=== PATIENT | male | born 1965 | race Caucasian/White ===

== ENCOUNTER → 2024-03-28 12:50 | Outpatient (REF) | payer OTHER, SELFPAY | LOC: RCS 12:50 | PROVIDERS: ATTENDING PHYSICIAN Internal Medicine Cardiovascular Disease; FAMILY PHYSICIAN Internal Medicine; REFERRING PHYSICIAN Family Medicine | DX: I77.810 Thoracic aortic ectasia (principal) | CPT/HCPCS: 93306 ==

== ENCOUNTER 2024-10-12 21:13 | Emergency (ER) | payer OTHER, SELFPAY ==
[2024-10-12 21:16] VITALS: BP 143/87
[2024-10-12] MEDS: ZOFRAN 4 MG IV (21:25)
[2024-10-12] MEDS: MORPHINE SULFATE 4 MG IV (21:26)
[2024-10-12 21:29] LABS: Urine Albumin 2+ (Neg - Trace); Urine Bilirubin Negative (Negative); Urine Character Clear (Clear); Urine Color Yellow; Urine Glucose 2+ (Negative); Urine Ketone Negative (Negative); Urine Leukocyte Negative (Negative); Urine Nitrite Negative (Negative); Urine Occult Blood 4+ (Negative); Urine Specific Gravity 1.025 (<1.030); Urine Urobilinogen Negative (Neg - 1+)
[2024-10-12 21:30] LABS: % Basophils 0.6 % (0-2); % Eosinophils 5.7 % (0-6); % Immature Granulocytes 0.5 % (0-0.5); % Lymphocytes 36.1 % (20.5-51.1); % Neutrophils 51.1 % (42.2-75.2); Absolute Basophils 0.1 10^3/uL (0-0.2); Absolute Eosinophils 0.5 10^3/uL (0-0.7); Absolute Monocytes 0.5 10^3/uL (0.1-0.6); Absolute Neutrophils 4.3 10^3/uL (1.4-6.5); Hematocrit 39.6 % (39.0-52.0); Hemoglobin 13.9 g/dL (13.0-18.0); Mean Corp Hgb Conc. 35.1 g/dL (33.0-37.0); Mean Corpuscular Volume 91.2 fL (80.0-94.0); Mean Platelet Volume 9.4 fL (7.4-10.4); Nucleated Red Blood Cells % 0 % (-); Platelet Count 223 10^3/uL (130-400); Red Blood Cell Count 4.34 10^6/uL (4.70-6.10); Red Cell Dist. Width 13.2 % (11.5-14.5); White Blood Cell Count 8.3 10^3/uL (4.8-10.8)
[2024-10-12 21:46] LABS: ALT (SGPT) 62 U/L (0-50); AST (SGOT) 58 U/L (17-59); Albumin 4.2 g/dl (3.5-5.0); Alkaline Phosphatase 77 U/L (38-126); Blood Urea Nitrogen 22 mg/dl (9-20); Calcium 9.2 mg/dl (8.4-10.2); Carbon Dioxide 26 mmol/L (22-30); Chloride 109 mmol/L (98-107); Glucose 196 mg/dl (70-99); Potassium 4.4 mmol/L (3.5-5.1); Sodium 142 mmol/L (135-145); Total Bilirubin 0.8 mg/dl (0.2-1.3); Total Protein 6.4 g/dl (6.3-8.2); Urine Squamous Cell 0-2 /LPF (Few); eGFR > 60.00
[2024-10-12 21:47] LABS: Urine Bacteria Few (Negative); Urine Mucus Moderate; Urine Red Blood Cell 50-60 /HPF (0-2); Urine White Cell 0-2 /HPF (0-5)
--- NOTE | 2024-10-12 23:55 | ED.GENMED ---
History of Present Illness
General
Chief Complaint: Flank Pain
Source: patient
Exam Limitations: none
Time Seen by Provider: 10/12/24 23:19
Nursing documentation reviewed up to this point in time: agreed with
History of Present Illness
History of Present Illness:
Patient is a 5-year-old male complaining of right flank pain that started today. Patient has a history of kidney stones years ago. He denies any nausea vomiting fevers. He denies any testicular pain.
Past History
Past History
ED Past Medical History: HTN, Hypercholesterolemia and Other (WPW)
ED Past Surgical History: Cardiac (Ablation), Tonsilectomy and Other (Bariatric surgery)
Social History
Tobacco: Non-smoker
Alcohol: None
Drug: None
Personal:
Living: with family
Employment: Employed
Family History
Family History: Hypertension and CAD; Negative Early CAD
Review of Systems
Review of Systems
Allergies reviewed?: Yes
All Other Systems: ROS reviewed and negative except as documented in HPI and ROS
Constitutional: Reports no symptoms
Cardiac: Reports no symptoms
ABD/GI: Reports no symptoms
: Reports flank pain
Musculoskeletal: Reports no symptoms
Skin: Reports no symptoms
Neurological: Reports no symptoms
Psychiatric: Reports no symptoms
Phy Exam
General Physical Exam
General Presentation: no apparent distress
General age: appears stated age
General Skin: warm and dry
General Habitus: normal
General Mental: alert
General Hydration: appears well hydrated
Gastrointestinal Exam
Gastrointestinal Exam: normal bowel sounds, non tender and soft
Neurological Exam
Neurological Exam: alert and oriented x3
Musculoskeletal Exam
Musculoskeletal Exam: full ROM
Skin Exam
Skin Exam: normal color and warm/dry
Psychiatric Exam
Psychiatric Exam: normal mood/affect
Course
Orders/Labs/Results
Orders:
Orders
10/12/24 21:22
CBC/With Diff [Complete Blood Count/With Diff] Urgent
CMP [Comprehensive Metabolic Panel] Urgent
Urinalysis Reflex To Culture Urgent
Date Specimen was Collected: 10/12/24
Time Specimen was Collected: 21:16
Urine Microscopic Reflex Cult Urgent
Morphine Sulfate 4 mg .ROUTE .STK-MED ONE
Ondansetron Injectable [Zofran] 4 mg .ROUTE .STK-MED ONE
10/12/24 21:24
Ondansetron Injectable [Zofran] 4 mg IV NOW STA
10/12/24 21:25
Morphine Sulfate 4 mg IV NOW STA
10/12/24 21:29
CT Abd/pel Without Iv Or Oral Urgent
Comment:
Reason For Exam: right flank pain
10/12/24 23:59
0.9% Sodium Chloride 1000 ml [Nss] 1,000 ml IV BOLUS
HYDROmorphone [Dilaudid] 1 mg IV NOW STA
10/13/24 00:00
Tamsulosin [Flomax] 0.4 mg PO NOW STA
Abnormal Lab Results
10/12/24
21:22
RBC 4.34 L 10^6/uL
(4.70-6.10)
MCH 32.0 H pg
(27.0-31.0)
Chloride 109 H mmol/L
(98-107)
BUN 22 H mg/dl
(9-20)
Glucose 196 H mg/dl
(70-99)
ALT 62 H U/L
(0-50)
Ur Occult Blood Reflex 4+ A
(Negative)
Urine RBC 50-60 A /HPF
(0-2)
Urine Bacteria (Reflex) Few A
(Negative)
Urine Glucose 2+ A
(Negative)
Urine Albumin (Reflex) 2+ A
(Neg - Trace)
10/12/24 21:22
10/12/24 21:22
Vital Signs
Initial and Last Documented VS:
Initial Vital Signs
Temp Pulse Resp Pulse Ox
97.6 F 91 15 98
10/12/24 21:14 10/12/24 21:14 10/12/24 21:14 10/12/24 21:14
Last Documented Vital Signs
Temp Pulse Resp BP Pulse Ox
97.6 F 91 15 143/87 95
10/12/24 21:14 10/12/24 21:14 10/12/24 21:14 10/12/24 21:16 10/13/24 00:10
MDM/Problems Addressed
Differential Diagnosis Includes:
not limited to: renal colic
MDM/Problems Addressed:
Patient as documented is a 59-year-old male who present with right flank pain. Patient has a 3 mm distal right calculus with mild to moderate obstructive uropathy. Patient denies any fever chills he is in no acute distress afebrile normal white
count normal renal function. Patient was given narcotic along with Zofran and fluids NSAIDs avoided as he is a bariatric surgery patient. He feels well enough to go home he was also given Flomax here will DC with oxycodone Flomax and close
outpatient follow with urology
*Radiology
Radiology exam reviewed: radiology read reviewed (3 mm distal right calculus with mild to moderate obstructive uropathy distal right ureteral)
*Critical Care Note
Total Time (30-74mins, 75-104mins- exclusive of procedures): Not Applicable
ED Attending Note
-
Portions of this chart may have been created with voice recognition software.� Occasional wrong word or��sound alike� substitutions may have occurred due to the inherent limitations of voice recognition software.
Discharge Plan
Departure
Patient Disposition: Home (Routine Discharge)
Date of Disposition: 10/13/24
Time of Disposition: 00:47
Patient with high blood pressure during this ER visit?: Yes
Condition: Fair
Covid-19: Not Applicable
Discharge Problem:
Renal colic on right side
Instructions: Kidney Stones (DC), How to Strain Your Urine, BLOOD PRESSURE, Narcotic Pain Medication
Prescriptions:
New
oxycodone 5 mg tablet
5 mg PO Q6H PRN (Reason: Pain) Qty: 10 0RF
tamsulosin [Flomax] 0.4 mg capsule
0.4 mg PO DAILY Qty: 7 0RF
No Action
amlodipine 5 MG tablet
5 mg PO HS
pantoprazole 40 MG tablet,delayed release (DR/EC)
40 mg PO BID
lorazepam 0.5 mg Tablet
0.5 mg PO HS PRN (Reason: sleep)
Patient Comments:
03/25/2022: last filled 03/03/22, 90 tabs for 90 days from [facility]
escitalopram oxalate 10 mg Tablet
10 mg PO DAILY
rosuvastatin 40 mg tablet
40 mg PO DAILY
Tremfya 100 mg/mL syringe
100 mg SC Q6W
metoprolol tartrate 25 mg tablet
12.5 mg PO BID Qty: 60 0RF
Eliquis 5 mg tablet
5 mg PO BID Qty: 60 0RF
multivitamin Tablet
1 tab PO DAILY
doxycycline hyclate 100 mg Tablet
100 mg PO DAILY
cholecalciferol (vitamin D3) [Vitamin D3] 50 mcg (2,000 unit) Capsule
50 mcg PO DAILY
ferrous sulfate [iron] 325 mg (65 mg iron) Tablet
325 mg PO DAILY
Referrals:
Daryl Brand MD [Active] -
Mariajose Lisa MD [Family Provider] -
Activity Restrictions/Additional Instructions:
As discussed please increase water intake strain all urine. You may take Tylenol for discomfort however if needed a prescription for oxycodone was sent to your pharmacy take as directed. This is a narcotic and may cause constipation. Be sure to
take xoan-ryc-jzxummi laxative while taking this medication. No driving or drinking alcohol while taking this medication. In addition please take Flomax once a day daily for the next 7 days. Please follow-up with urology call to make an
appointment. Return if any worsening of symptoms.
Interventions
Interventions:
*Risk Screen - Suicide Last Done: 10/12/24 21:14
*General Assessment Last Done: 10/12/24 21:14
*Neglect/Abuse Screening Last Done: 10/12/24 21:14
*ED- Fall Risk Assessment Last Done: 10/13/24 00:11
*ED COVID-19 Vaccine History Last Done: 10/12/24 21:14
TS-Ufizpc-Ovbqdapfud Assessment Last Done: 10/13/24 00:05
ED-Male Genitourinary Assessment Last Done: 10/13/24 00:05
Discharge Date and Time
Print Language: AZERI
[2024-10-13] MEDS: DILAUDID 1 MG IV (00:09)
[2024-10-13] MEDS: NSS 1000 IV (00:09)
[2024-10-13] MEDS: FLOMAX 0.4 MG PO (00:51)
== END 2024-10-13 01:01 | disposition home or self-care (01) ==
LOC: EMR 21:13
PROVIDERS: Emergency Medicine; EMERGENCY PHYSICIAN Student in an Organized Health Care Education/Training Program; FAMILY PHYSICIAN Family Medicine
DX: R10.9 Unspecified abdominal pain (principal); I10 Essential (primary) hypertension; E78.00 Pure hypercholesterolemia, unspecified; I45.6 Pre-excitation syndrome; Z82.49 Family history of ischemic heart disease and other diseases of the circulatory system; Z87.442 Personal history of urinary calculi
CPT/HCPCS: 99284; 96374; 96375; 96360; 74176; 80053; 81003; 81015; 85025

== ENCOUNTER 2024-10-15 15:45 | Emergency (ER) | payer OTHER, SELFPAY ==
[2024-10-15 15:54] VITALS: BP 122/89
[2024-10-15 16:15] VITALS: BMI 30.7
--- NOTE | 2024-10-15 16:29 | ED.GENMED ---
History of Present Illness
General
Chief Complaint: Flank Pain
Source: patient
Exam Limitations: none
Time Seen by Provider: 10/15/24 16:05
Nursing documentation reviewed up to this point in time: agreed with
History of Present Illness
History of Present Illness:
59 yr old male with past medical history of hypertension hyperkalemia Qniyp-Mhtnkmmwo-Xhklb syndrome presents back to the ER complaining of right flank pain. Patient was seen here 3 days ago diagnosed with 3 mm distal ureteral stone. He has been
taking oxycodone which has not relieved his symptoms however today pain became increasingly worse. He complains of pain to the right flank. He now feels some difficulty even trying to urinate. He denies any fever or chills.
Past History
Past History
ED Past Medical History: HTN, Hypercholesterolemia and Other (WPW)
ED Past Surgical History: Cardiac (Ablation), Tonsilectomy and Other (Bariatric surgery)
Social History
Tobacco: Non-smoker
Alcohol: None
Drug: None
Personal:
Living: with family
Employment: Employed
Family History
Family History: Hypertension and CAD; Negative Early CAD
Review of Systems
Review of Systems
Allergies reviewed?: Yes
All Other Systems: ROS reviewed and negative except as documented in HPI and ROS
Constitutional: Reports no symptoms
Respiratory: Reports no symptoms
Cardiac: Reports no symptoms
ABD/GI: Reports no symptoms; Denies nausea or vomiting
: Reports flank pain
Musculoskeletal: Reports no symptoms
Skin: Reports no symptoms
Neurological: Reports no symptoms
Psychiatric: Reports no symptoms
Phy Exam
General Physical Exam
General Presentation: no apparent distress
General age: appears stated age
General Skin: warm and dry
General Habitus: normal
General Mental: alert
Gastrointestinal Exam
Gastrointestinal Exam: non tender and soft
Neurological Exam
Neurological Exam: alert and oriented x3
Musculoskeletal Exam
Musculoskeletal Exam: full ROM
Skin Exam
Skin Exam: normal color and warm/dry
Psychiatric Exam
Psychiatric Exam: normal mood/affect
Course
Orders/Labs/Results
Orders:
Orders
10/15/24 16:33
US Renal With Bladder Urgent
Comment:
Reason For Exam: right flank pain
10/15/24 16:34
0.9% Sodium Chloride 1000 ml [Nss] 1,000 ml IV BOLUS
10/15/24 16:37
HYDROmorphone [Dilaudid] 1 mg .ROUTE .STK-MED ONE
HYDROmorphone [Dilaudid] 1 mg IV NOW STA
10/15/24 16:42
Ondansetron Injectable [Zofran] 4 mg .ROUTE .STK-MED ONE
10/15/24 16:43
Ondansetron Injectable [Zofran] 4 mg IV NOW STA
10/15/24 16:46
Complete Blood Count/With Diff Urgent
Comprehensive Metabolic Panel Urgent
Urinalysis Reflex To Culture Urgent
Date Specimen was Collected: 10/15/24
Time Specimen was Collected: 16:35
Urine Microscopic Reflex Cult Urgent
10/15/24 17:04
Ketorolac [Toradol] 15 mg .ROUTE .STK-MED ONE
Ketorolac [Toradol] 15 mg IV NOW STA
10/15/24 17:44
0.9% Sodium Chloride 1000 ml [Nss] 1,000 ml IV BOLUS
Abnormal Lab Results
10/15/24
16:46
RBC 4.45 L 10^6/uL
(4.70-6.10)
MCH 31.9 H pg
(27.0-31.0)
Absolute Monos (auto) 0.9 H 10^3/uL
(0.1-0.6)
Monocytes % 9.7 H %
(1.7-9.3)
Chloride 108 H mmol/L
(98-107)
Ur Occult Blood Reflex 4+ A
(Negative)
Urine RBC >100 A /HPF
(0-2)
Urine Bacteria (Reflex) Few A
(Negative)
Urine Albumin (Reflex) 2+ A
(Neg - Trace)
10/15/24 16:46
10/15/24 16:46
Vital Signs
Initial and Last Documented VS:
Initial Vital Signs
Temp Pulse Resp BP Pulse Ox
97.6 F 88 18 122/89 96
10/15/24 15:54 10/15/24 15:54 10/15/24 15:54 10/15/24 15:54 10/15/24 15:54
Last Documented Vital Signs
Temp Pulse Resp BP Pulse Ox
97.6 F 78 16 132/97 95
10/15/24 15:54 10/15/24 17:51 10/15/24 17:51 10/15/24 17:51 10/15/24 17:51
MDM/Problems Addressed
Differential Diagnosis Includes:
Not limited to intractable pain related to renal stone
MDM/Problems Addressed:
As documented patient is a 5-year-old male who presented with continued right-sided flank pain. Patient was seen here several days ago diagnosed with a 3 cm distal ureteral stone. He presents awake alert no acute distress. He was given a dose of
Dilaudid IV however that only subsided symptoms minimally. He does have a history of gastric sleeve surgery and we have been avoiding NSAIDs however 1 dose of Toradol was given with improvement of symptoms. He does feel well enough to go home.
Ultrasound was done which shows mild right renal collecting system dilatation similar to recent CT. Patient was able to urinate here no evidence of infection.
Case discussed with urology patient to call the office tomorrow morning for an appointment later tomorrow afternoon. He is to return if any worsening of symptoms
*Radiology
Radiology exam reviewed: radiology read reviewed
*Critical Care Note
Total Time (30-74mins, 75-104mins- exclusive of procedures): Not Applicable
Data Reviewed
Review of Other/Old Records Reveals: Other (ED visit from several days ago )
ED Attending Note
-
Portions of this chart may have been created with voice recognition software.� Occasional wrong word or��sound alike� substitutions may have occurred due to the inherent limitations of voice recognition software.
Discharge Plan
Departure
Patient Disposition: Home (Routine Discharge)
Date of Disposition: 10/15/24
Time of Disposition: 19:47
Patient with high blood pressure during this ER visit?: Yes
Condition: Fair
Covid-19: Not Applicable
Discharge Problem:
renal colic
Instructions: Renal Colic (DC)
Prescriptions:
No Action
amlodipine 5 MG tablet
5 mg PO HS
pantoprazole 40 MG tablet,delayed release (DR/EC)
40 mg PO BID
lorazepam 0.5 mg Tablet
0.5 mg PO HS PRN (Reason: sleep)
Patient Comments:
03/25/2022: last filled 03/03/22, 90 tabs for 90 days from [facility]
escitalopram oxalate 10 mg Tablet
10 mg PO DAILY
rosuvastatin 40 mg tablet
40 mg PO DAILY
Tremfya 100 mg/mL syringe
100 mg SC Q6W
metoprolol tartrate 25 mg tablet
12.5 mg PO BID Qty: 60 0RF
Eliquis 5 mg tablet
5 mg PO BID Qty: 60 0RF
multivitamin Tablet
1 tab PO DAILY
doxycycline hyclate 100 mg Tablet
100 mg PO DAILY
cholecalciferol (vitamin D3) [Vitamin D3] 50 mcg (2,000 unit) Capsule
50 mcg PO DAILY
ferrous sulfate [iron] 325 mg (65 mg iron) Tablet
325 mg PO DAILY
oxycodone 5 mg tablet
5 mg PO Q6H PRN (Reason: Pain) Qty: 10 0RF
tamsulosin [Flomax] 0.4 mg capsule
0.4 mg PO DAILY Qty: 7 0RF
Referrals:
Julian Luis MD [Active] -
Mariajose Lisa MD [Family Provider] -
Activity Restrictions/Additional Instructions:
Please continue to increase your fluid intake continue to take your Flomax and pain medication as needed. Call the urology office between 8�9 AM to get an appointment tomorrow. Return to the ER for any worsening of symptoms
Interventions
Interventions:
*Risk Screen - Suicide Last Done: 10/15/24 15:54
*General Assessment Last Done: 10/15/24 16:23
*ED- Fall Risk Assessment Last Done: 10/15/24 16:23
DU-Fskkik-Sxtgtlmswg Assessment Last Done: 10/15/24 16:23
ED-Male Genitourinary Assessment Last Done: 10/15/24 16:23
Discharge Date and Time
Print Language: [place]
[2024-10-15] MEDS: NSS 1000 IV ×2 (16:38→17:52)
[2024-10-15] MEDS: DILAUDID 1 MG IV (16:39)
[2024-10-15] MEDS: ZOFRAN 4 MG IV (16:44)
[2024-10-15 16:55] LABS: % Basophils 0.9 % (0-2); % Eosinophils 4.8 % (0-6); % Immature Granulocytes 0.3 % (0-0.5); % Lymphocytes 36.2 % (20.5-51.1); % Monocytes 9.7 % (1.7-9.3); % Neutrophils 48.1 % (42.2-75.2); Absolute Basophils 0.1 10^3/uL (0-0.2); Absolute Eosinophils 0.4 10^3/uL (0-0.7); Absolute Lymphocytes 3.3 10^3/uL (1.2-3.4); Absolute Monocytes 0.9 10^3/uL (0.1-0.6); Absolute Neutrophils 4.4 10^3/uL (1.4-6.5); Hematocrit 39.8 % (39.0-52.0); Hemoglobin 14.2 g/dL (13.0-18.0); Mean Corp Hgb Conc. 35.7 g/dL (33.0-37.0); Mean Corpuscular Hgb 31.9 pg (27.0-31.0); Mean Corpuscular Volume 89.4 fL (80.0-94.0); Mean Platelet Volume 9.3 fL (7.4-10.4); Nucleated Red Blood Cells % 0 % (-); Platelet Count 228 10^3/uL (130-400); Red Blood Cell Count 4.45 10^6/uL (4.70-6.10); Red Cell Dist. Width 13.5 % (11.5-14.5); White Blood Cell Count 9.2 10^3/uL (4.8-10.8)
[2024-10-15 16:58] LABS: Urine Albumin 2+ (Neg - Trace); Urine Bilirubin Negative (Negative); Urine Character Slightly Cloudy (Clear); Urine Color Yellow; Urine Glucose Negative (Negative); Urine Ketone Negative (Negative); Urine Leukocyte Negative (Negative); Urine Nitrite Negative (Negative); Urine Occult Blood 4+ (Negative); Urine Specific Gravity 1.025 (<1.030); Urine Urobilinogen Negative (Neg - 1+)
[2024-10-15] MEDS: TORADOL 15 MG IV (17:05)
[2024-10-15 17:12] LABS: ALT (SGPT) 48 U/L (0-50); AST (SGOT) 38 U/L (17-59); Albumin 4.4 g/dl (3.5-5.0); Alkaline Phosphatase 61 U/L (38-126); Blood Urea Nitrogen 17 mg/dl (9-20); Calcium 9.4 mg/dl (8.4-10.2); Carbon Dioxide 25 mmol/L (22-30); Chloride 108 mmol/L (98-107); Estimated Creatinine Clearance 95 ml/min; Glucose 94 mg/dl (70-99); Sodium 141 mmol/L (135-145); Total Bilirubin 0.7 mg/dl (0.2-1.3); Total Protein 6.6 g/dl (6.3-8.2); eGFR > 60.00
[2024-10-15 17:17] LABS: Urine Bacteria Few (Negative); Urine Red Blood Cell >100 /HPF (0-2); Urine Squamous Cell 0-2 /LPF (Few); Urine White Cell 0-2 /HPF (0-5)
[2024-10-15 17:51] VITALS: BP 132/97
[2024-10-15 19:55] VITALS: BP 140/105
== END 2024-10-15 20:00 | disposition home or self-care (01) ==
LOC: EMR 15:45
PROVIDERS: Nurse Practitioner; EMERGENCY PHYSICIAN Emergency Medicine; FAMILY PHYSICIAN Family Medicine
DX: N20.2 Calculus of kidney with calculus of ureter (principal); I10 Essential (primary) hypertension; E78.00 Pure hypercholesterolemia, unspecified; Z98.84 Bariatric surgery status
CPT/HCPCS: 96374; 96375; 96361; 99284; 76770; 80053; 81003; 81015; 85025

== ENCOUNTER 2025-01-04 06:18 | Day surgery (SDC) | payer OTHER, SELFPAY | END 2025-01-04 10:50 | disposition home or self-care (01) | LOC: GI 06:18 | PROVIDERS: ATTENDING PHYSICIAN Internal Medicine Gastroenterology | DX: Z12.11 Encounter for screening for malignant neoplasm of colon (principal); D12.2 Benign neoplasm of ascending colon; D12.3 Benign neoplasm of transverse colon; D12.7 Benign neoplasm of rectosigmoid junction; K57.30 Diverticulosis of large intestine without perforation or abscess without bleeding; K64.8 Other hemorrhoids; K29.70 Gastritis, unspecified, without bleeding; K29.50 Unspecified chronic gastritis without bleeding; K21.9 Gastro-esophageal reflux disease without esophagitis; Q39.9 Congenital malformation of esophagus, unspecified; K31.89 Other diseases of stomach and duodenum; Z98.84 Bariatric surgery status; Z86.0101 Personal history of adenomatous and serrated colon polyps | CPT/HCPCS: 45385; 43239; 88305 ==